=== PATIENT | female | born 1995 | race Caucasian/White ===

== ENCOUNTER 2020-11-30 06:51 | Emergency (ER) | payer SELFPAY ==
[~2020-11-30 06:51] MED LIST: COLACE100 MG PO; IBUPROFEN600 MG PO; NORCO 5-325 TA1 EACH PO
[2020-11-30] MEDS ORDERED: NORFLEX 100 MG100 MG PO (11:05)
[2020-11-30] MEDS ORDERED: Voltaren Gel 1 % TOP (11:05)
[2020-11-30] MEDS ORDERED: MEDROL DOSEPAK 24 MG PO (11:05)
== END 2020-11-30 11:13 | disposition home or self-care (01) ==
LOC: ER1 06:51
DX: M54.5 Low back pain (principal)
CPT/HCPCS: 72100; 96372; 99283; J1885; J2930

== ENCOUNTER 2021-07-10 19:33 | Emergency (ER) | payer OTHER ==
[~2021-07-10 19:33] MED LIST changes: +MEDROL DOSEPAK 24 MG PO; +NORFLEX 100 MG100 MG PO; +Voltaren Gel 1 % TOP
[2021-07-10 20:02] LABS: HEMOGLOBIN 13.3 gm/dl (12.3-15.3); RED BLOOD COUNT 4.66 M/UL (4.00-5.10); WHITE BLOOD COUNT 9.8 K/UL (4.5-11.0)
[2021-07-10 20:23] LABS: BUN/CREATININE RATIO 17 (0-10)
[2021-07-10] MEDS ORDERED: PERCOCET 5/325 T1 EA PO (22:21)
[2021-07-10] MEDS ORDERED: ZOFRAN ODT 4 MG4 MG GT (22:21)
[2021-07-10] MEDS ORDERED: [UNRECOGNIZED DRUG - OTHER] (22:25)
== END 2021-07-10 22:35 | disposition home or self-care (01) ==
LOC: ER1 19:33
PROVIDERS: Family Medicine
DX: R10.11 Right upper quadrant pain (principal); R10.811 Right upper quadrant abdominal tenderness; F17.290 Nicotine dependence, other tobacco product, uncomplicated
CPT/HCPCS: 80053; 81001; 83690; 85025; 96374; 96375; 99284; J2270; J2405; Q9967

== ENCOUNTER → 2021-07-26 | Outpatient (CLI) | payer OTHER ==
[~2021-07-26] MED LIST changes: +PERCOCET 5/325 T1 EA PO; +ZOFRAN ODT 4 MG4 MG GT; +[UNRECOGNIZED DRUG - OTHER]
== END ==
LOC: EXRD 08:00
DX: R10.11 Right upper quadrant pain (principal); K80.20 Calculus of gallbladder without cholecystitis without obstruction
CPT/HCPCS: 76705

== ENCOUNTER 2021-12-16 10:25 | Emergency (ER) | payer OTHER ==
[2021-12-16] MEDS ORDERED: BACITRACIN28.4 GM TP (11:27)
[2021-12-16] MEDS ORDERED: CEPHALEXIN500 MG PO (11:27)
[2021-12-16] MEDS ORDERED: BACTRIM DS TAB1 EACH PO (11:27)
== END 2021-12-16 11:56 | disposition home or self-care (01) ==
LOC: ER1 10:25
DX: L03.211 Cellulitis of face (principal)
CPT/HCPCS: 99283